=== PATIENT | male | born 1965 | race Two or more races ===

== ENCOUNTER 2019-08-26 19:00 | Emergency (ER) | payer SELFPAY ==
[~2019-08-26] VITALS: Ht 182.9 cm; Wt 91.0 kg
[2019-08-26] MEDS ORDERED: SODIUM CHLORIDE 0.9% 1,000 ML IV ONE (19:26)
[2019-08-26 20:10] LABS: CHLORIDE 115 mEq/L (98-107)
[2019-08-26 20:11] LABS: BASOPHILS % 0.6 % (0.0-2.0); EOSINOPHILS % 0.5 % (0.0-5.0); HEMATOCRIT. 40.7 % (42.0-52.0); HEMOGLOBIN. 13.8 g/dL (14.0-18.0); LYMPHOCYTES % 18.2 % (20.0-50.0); MEAN CORPUSCULAR HEMOGLOBIN 31.1 pg (28.0-32.0); MEAN CORPUSCULAR VOLUME 91.6 fL (80.0-94.0); MEAN PLATELET VOLUME 9.1 fl (7.4-10.4); MONOCYTES % 4.8 % (2.0-8.0); NEUTROPHILS % 75.9 % (40.0-76.0); PLATELET 183 x1000/uL (130-400); RED BLOOD CELL COUNT 4.45 mill/uL (4.7-6.1); RED CELL DISTRIBUTION WIDTH 13.3 % (11.6-14.6)
[2019-08-26 20:15] LABS: ETHANOL BLOOD 87 mg/dL
[2019-08-26 20:48] VITALS: BP 155/91
== END 2019-08-26 20:56 | disposition home or self-care (01) ==
LOC: ER 19:00
DX: F16.129 Hallucinogen abuse with intoxication, unspecified (principal); F17.210 Nicotine dependence, cigarettes, uncomplicated; Z71.6 Tobacco abuse counseling; Z78.1 Physical restraint status
CPT/HCPCS: 36415; 80053; 80320; 85025; 99284; 99406; J7030; Z7610; G0480